=== PATIENT | male | born 1950 | race African-American/Black ===

== ENCOUNTER 2021-04-02 11:40 | Emergency (ER) | payer MEDICARE, MEDICAID ==
[~2021-04-02] VITALS: Ht 177.8 cm; Wt 69.0 kg
[2021-04-02] MEDS ORDERED: LIDOCAINE 5% PATCH TOP SCH (13:00)
[2021-04-02] MEDS ORDERED: ACETAMINOPHEN WITH CODEINE 300/30MG TABLET PO ONE (13:00)
[2021-04-02] MEDS ORDERED: LIDO1ADH5 TP (15:22)
[2021-04-02] MEDS ORDERED: ACET-2708 MT (15:22)
[2021-04-02 15:49] VITALS: BP 121/67
== END 2021-04-02 15:52 | disposition home or self-care (01) ==
LOC: ER 11:40
DX: S39.012A Strain of muscle, fascia and tendon of lower back, initial encounter (principal); W18.39XA Other fall on same level, initial encounter; Y93.89 Activity, other specified; Y92.89 Other specified places as the place of occurrence of the external cause; Y99.8 Other external cause status; Z98.890 Other specified postprocedural states
CPT/HCPCS: 99283

== ENCOUNTER 2021-10-16 12:36 | Emergency (ER) | payer MEDICARE, MEDICAID ==
[~2021-10-16] VITALS: Ht 177.8 cm; Wt 73.0 kg
[~2021-10-16 12:36] MED LIST: ACET-2708 MT; LIDO1ADH5 TP
[2021-10-16 12:41] VITALS: BP 138/68
== END 2021-10-16 15:13 | disposition left against medical advice (07) ==
LOC: ER 12:36
DX: S49.82XA Other specified injuries of left shoulder and upper arm, initial encounter (principal); S59.802A Other specified injuries of left elbow, initial encounter; I51.7 Cardiomegaly; Y04.2XXA Assault by strike against or bumped into by another person, initial encounter; Y93.89 Activity, other specified; Y92.89 Other specified places as the place of occurrence of the external cause; Z53.21 Procedure and treatment not carried out due to patient leaving prior to being seen by health care provider
CPT/HCPCS: 99283

== ENCOUNTER 2021-10-24 13:40 | Emergency (ER) | payer MEDICARE, MEDICAID ==
[~2021-10-24] VITALS: Ht 177.8 cm; Wt 66.0 kg
[2021-10-24 13:44] VITALS: BP 136/60
== END 2021-10-24 21:38 | disposition left against medical advice (07) ==
LOC: ER 13:40
DX: M25.512 Pain in left shoulder (principal); Z53.21 Procedure and treatment not carried out due to patient leaving prior to being seen by health care provider
CPT/HCPCS: 73030

== ENCOUNTER 2021-10-30 10:22 | Emergency (ER) | payer MEDICARE, MEDICAID ==
[~2021-10-30] VITALS: Ht 177.8 cm; Wt 69.0 kg
[2021-10-30 10:26] VITALS: BP 133/70
== END 2021-10-30 11:29 | disposition home or self-care (01) ==
LOC: ER 10:22
DX: Z71.2 Person consulting for explanation of examination or test findings (principal); Z87.828 Personal history of other (healed) physical injury and trauma
CPT/HCPCS: 99281